=== PATIENT | female | born 1990 ===

== ENCOUNTER → 2023-06-16 08:41 | Outpatient (CLI) | payer OTHER, SELFPAY ==
[2023-06-16 09:18] LABS: Specimen Label Y
[2023-06-16 10:40] LABS: Add Manual Diff / Slide Review NO; Basophils Absolute Auto 0 /uL (0-100); Basophils Percent Auto 0.2 % (0-2); Eosinophils Absolute Auto 100 /uL (0-450); Eosinophils Percent Auto 1.2 % (2-4); Hematocrit 37.1 % (36-46); Hemoglobin 13.1 g/dL (12.0-16.0); Lymphocytes Absolute Auto 2000 /uL (1100-4500); Lymphocytes Percent Auto 34.6 % (25-40); Mean Corpuscular HGB Conc 35.4 % (30-36); Mean Corpuscular Hemoglobin 33.4 PG (26-34); Mean Corpuscular Volume 94.4 fL (80-100); Monocytes Absolute Auto 400 /uL (0-900); Monocytes Percent Auto 6.2 % (3-14); Neutrophils Absolute Auto 3300 /uL (1500-7000); Neutrophils Percent Auto 57.8 % (50-75); Platelet Count 255 X10^3/uL (150-400); Red Blood Cell Count 3.93 X10^6/uL (4.0-5.2); White Blood Cell Count 5.8 X10^3/uL (4.5-11.0)
[2023-06-16 10:55] LABS: Free T4, Direct Thyroxine 1.04 ng/dL (0.78-2.19)
[2023-06-16 11:09] LABS: Thyroid Stimulating Hormone 4.12 uIU/mL (0.47-4.68)
[2023-06-16 14:54] LABS: Urine N gonorrhoeae NOT DETECTED
[2023-06-16 14:56] LABS: Urine Chlamydia NOT DETECTED
[2023-06-16 16:48] LABS: Hepatitis B Surface Antigen NEGATIVE s/c (NEGATIVE); Rubella Antibody IgG 27.6 IU/mL (>15)
[2023-06-16 16:54] LABS: HIV 1 & 2 Ab/Ag 4th Gen Combo NEGATIVE (NEGATIVE)
[2023-06-16 17:10] LABS: Hep C Virus Ab w/Reflex Quant NEGATIVE s/c (NEGATIVE)
[2023-06-17 09:17] LABS: RPR Screen Non Reactive (Non Reactive)
[2023-06-17 11:20] LABS: Varicella IgG Antibody 1658 index (Immune >165)
== END ==
PROVIDERS: PCP Family Medicine; Referring Provider Specialist; Visit Provider Specialist
DX: O09.511 Supervision of elderly primigravida, first trimester (principal); Z34.81 Encounter for supervision of other normal pregnancy, first trimester; E03.9 Hypothyroidism, unspecified; Z3A.12 12 weeks gestation of pregnancy
CPT/HCPCS: 36415; 80055; 84439; 84443; 86787; 86803; 86850; 86870; 86886; 86900; 86901; 87086; 87389; 87491; 87591

== ENCOUNTER → 2023-09-17 13:08 | Outpatient (CLI) | payer OTHER, SELFPAY ==
[2023-09-17 14:52] LABS: Hematocrit 34.6 % (36-46); Hemoglobin 12.4 g/dL (12.0-16.0)
[2023-09-17 15:06] LABS: GTT (PREG) 1 Hour PP 50gm Dose 110 mg/dL (76-139)
[2023-09-17 15:42] LABS: Free T4, Direct Thyroxine 0.84 ng/dL (0.78-2.19)
[2023-09-17 15:56] LABS: Thyroid Stimulating Hormone 1.59 uIU/mL (0.47-4.68)
== END ==
PROVIDERS: PCP Family Medicine; Referring Provider Obstetrics & Gynecology; Visit Provider Obstetrics & Gynecology
DX: Z34.82 Encounter for supervision of other normal pregnancy, second trimester (principal); Z3A.26 26 weeks gestation of pregnancy; E03.9 Hypothyroidism, unspecified
CPT/HCPCS: 36415; 82950; 84439; 84443; 85014; 85018

== ENCOUNTER 2023-10-31 09:21 | Outpatient (CLI) | payer OTHER, SELFPAY | END 2023-10-31 10:00 | disposition home or self-care (01) | LOC: LABOR 09:40 → OB 11-03 12:04 | PROVIDERS: PCP Family Medicine; Referring Provider Obstetrics & Gynecology; Visit Provider Obstetrics & Gynecology | DX: O36.1930 Maternal care for other isoimmunization, third trimester, not applicable or unspecified (principal); Z3A.31 31 weeks gestation of pregnancy | CPT/HCPCS: 59025; G0378; G0379 ==

== ENCOUNTER 2023-11-14 08:42 | Outpatient (CLI) | payer OTHER, SELFPAY | END 2023-11-14 09:23 | disposition home or self-care (01) | LOC: LABOR 08:46 → OB 11-18 06:52 | PROVIDERS: PCP Family Medicine; Referring Provider Family Medicine; Visit Provider Family Medicine | DX: O36.1930 Maternal care for other isoimmunization, third trimester, not applicable or unspecified (principal); Z3A.33 33 weeks gestation of pregnancy | CPT/HCPCS: 59025; G0378; G0379 ==

== ENCOUNTER 2023-11-19 15:31 | Outpatient (CLI) | payer OTHER, SELFPAY | END 2023-11-19 16:02 | disposition home or self-care (01) | LOC: LABOR 15:33 → OB 11-20 12:26 | PROVIDERS: PCP Family Medicine; Referring Provider Obstetrics & Gynecology; Visit Provider Obstetrics & Gynecology | DX: O36.1930 Maternal care for other isoimmunization, third trimester, not applicable or unspecified (principal); Z3A.34 34 weeks gestation of pregnancy | CPT/HCPCS: 59025; G0378; G0379 ==

== ENCOUNTER 2023-11-25 08:14 | Outpatient (CLI) | payer OTHER, SELFPAY | END 2023-11-25 08:50 | disposition home or self-care (01) | LOC: OB 11-27 10:03 | PROVIDERS: PCP Family Medicine; Referring Provider Obstetrics & Gynecology; Visit Provider Obstetrics & Gynecology | DX: O36.1930 Maternal care for other isoimmunization, third trimester, not applicable or unspecified (principal); Z3A.35 35 weeks gestation of pregnancy | CPT/HCPCS: 59025; G0378; G0379 ==

== ENCOUNTER 2023-12-01 08:13 | Outpatient (CLI) | payer OTHER, SELFPAY ==
--- NOTE | 2023-12-01 08:45 | P.TNLD_ITS ---
Visit Information Visit Information Date of evaluation: 12/01/23 Primary OB Provider: Roula Pacheco On-call OB Provider: Paige Crawford Reason for Evaluation: Yes non-stress test Comments/Additional reasons for admission: Red blood cell antibody positive Vital Signs Vital Signs: Blood pressure 116/83 [facility] Medical History (Updated 12/01/23 @ 08:50 by Paige Crawford MD) Depression (~2013) Hyperthyroidism (~2017) Hyperlipidemia (~2013) Surgical History (Updated 07/17/23 @ 19:47 by Viji Vera) Anesthesia [place] teeth extracted Previous section (~05/2021) Family History (Updated 07/17/23 @ 19:48 by Viji Vera) Mother Melanoma Breast cancer Father Hypertension Hyperlipidemia Mental health problem Grandmother Cancer Grandfather Pancreatic cancer Grandfather Hyperlipidemia Stroke Social History marital status: number of children: 1 household members: spouse and children lives independently: Yes caregiver/support person: Yes housing: house pets and animals: Yes (2 cats, chickens) education level: other (DNP, geriatric provider for alf facilities) occupational status: employed current occupational exposures/hazards: Yes special ioana needs: No travel history: over 6 months ago seatbelt use: always helmet use: Yes water heater temp set < 120 deg: Yes working smoke detector in home: Yes fire extinguisher in home: Yes carbon monox detector in home: Yes firearms in home: No do you feel safe at home: Yes Smoking Status: Never smoker second hand exposure: No alcohol intake: former (rarely when not ) substance use type: does not use during the past year weight has: remained stable well-balanced diet: daily or most days daily servings fruits/ve-4 caffeine: Yes (aware of 200mg limit) Type(s) of exercise: walking Evaluation Evaluation Baseline heart rate: 140 Variability: Moderate (11-25) monitor accelerations: Present Monitor Decelerations: Absent Contraction Frequency (minutes): 0 Category of Tracing: Reactive Status: Category l Diagnosis, Plan/Disposition Final Diagnosis (1) Red blood cell antibody positive: Status: Acute (2) 36 weeks gestation of : Status: Acute Plan/Disposition Plan: Reactive nonstress test continue weekly exams. Patient is scheduled for repeat in 1 week OB Disposition: home
== END 2023-12-01 08:50 | disposition home or self-care (01) ==
LOC: LABOR 08:31 → OB 12-02 16:22
PROVIDERS: PCP Family Medicine; Referring Provider Specialist; Visit Provider Specialist
DX: O36.1930 Maternal care for other isoimmunization, third trimester, not applicable or unspecified (principal); Z3A.36 36 weeks gestation of pregnancy; Z34.83 Encounter for supervision of other normal pregnancy, third trimester
CPT/HCPCS: 59025; 87653; G0378; G0379

== ENCOUNTER → 2023-12-01 14:53 | Outpatient (CLI) | payer OTHER, SELFPAY ==
[2023-12-02 14:53] LABS: Strep Grp B PCR NEG for Grp B Strep
== END ==
PROVIDERS: PCP Family Medicine; Visit Provider Specialist
DX: Z34.83 Encounter for supervision of other normal pregnancy, third trimester (principal); Z3A.36 36 weeks gestation of pregnancy
CPT/HCPCS: 87653

== ENCOUNTER 2023-12-05 08:05 | Outpatient (CLI) | payer OTHER, SELFPAY ==
--- NOTE | 2023-12-05 08:33 | P.TNLD_ITS ---
Visit Information Visit Information Date of evaluation: 12/05/23 Primary OB Provider: Roula Pacheco On-call OB Provider: Paige Crawford Reason for Evaluation: Yes non-stress test non-stress test reason: other (Anti K antibodies) Vital Signs Vital Signs: Blood pressure 114/69, pulse 92, temperature 36? point [facility] Medical History (Updated 12/01/23 @ 08:50 by Paige Crawford MD) Depression (~2013) Hyperthyroidism (~2017) Hyperlipidemia (~2013) Surgical History (Updated 07/17/23 @ 19:47 by Viji Vera) Anesthesia [place] teeth extracted Previous section (~05/2021) Family History (Updated 07/17/23 @ 19:48 by Viji Vera) Mother Melanoma Breast cancer Father Hypertension Hyperlipidemia Mental health problem Grandmother Cancer Grandfather Pancreatic cancer Grandfather Hyperlipidemia Stroke Social History marital status: number of children: 1 household members: spouse and children lives independently: Yes caregiver/support person: Yes housing: house pets and animals: Yes (2 cats, chickens) education level: other (DNP, geriatric provider for fdc facilities) occupational status: employed current occupational exposures/hazards: Yes special ioana needs: No travel history: over 6 months ago seatbelt use: always helmet use: Yes water heater temp set < 120 deg: Yes working smoke detector in home: Yes fire extinguisher in home: Yes carbon monox detector in home: Yes firearms in home: No do you feel safe at home: Yes Smoking Status: Never smoker second hand exposure: No alcohol intake: former (rarely when not ) substance use type: does not use during the past year weight has: remained stable well-balanced diet: daily or most days daily servings fruits/ve-4 caffeine: Yes (aware of 200mg limit) Type(s) of exercise: walking Evaluation Evaluation Baseline heart rate: 140 Variability: Moderate (11-25) monitor accelerations: Present Monitor Decelerations: Absent Diagnosis, Plan/Disposition Final Diagnosis (1) 36 weeks gestation of : Status: Acute (2) Red blood cell antibody positive: Status: Acute Plan/Disposition Plan: Continue twice weekly nonstress tests OB Disposition: home
== END 2023-12-05 08:40 | disposition home or self-care (01) ==
LOC: OB 12-09 11:23
PROVIDERS: PCP Family Medicine; Referring Provider Specialist; Visit Provider Specialist
DX: O36.1930 Maternal care for other isoimmunization, third trimester, not applicable or unspecified (principal); Z3A.36 36 weeks gestation of pregnancy; Z01.818 Encounter for other preprocedural examination; R76.8 Other specified abnormal immunological findings in serum
CPT/HCPCS: 36415; 59025; 86850; 86870; 86886; 86900; 86901; G0378; G0379

== ENCOUNTER → 2023-12-05 08:39 | Outpatient (CLI) | payer OTHER, SELFPAY | LOC: LAB 08:41 | PROVIDERS: PCP Family Medicine; Referring Provider Specialist; Visit Provider Specialist | DX: Z01.818 Encounter for other preprocedural examination (principal); R76.8 Other specified abnormal immunological findings in serum; Z3A.36 36 weeks gestation of pregnancy | CPT/HCPCS: 36415; 86850; 86870; 86886; 86900; 86901 ==

== ENCOUNTER 2023-12-08 05:46 | Inpatient (IN) | payer OTHER, SELFPAY ==
[2023-12-08] VITALS (7 sets, daily range): BP systolic 107–122; BP diastolic 65–81; PULSE 83–98; RESP 11–19; TEMP 36.3; O2SAT 98–100
[2023-12-08 06:55] LABS: Add Manual Diff / Slide Review NO; Basophils Absolute Auto 0 /uL (0-100); Basophils Percent Auto 0.5 % (0-2); Eosinophils Absolute Auto 200 /uL (0-450); Eosinophils Percent Auto 1.8 % (2-4); Hematocrit 37.4 % (36-46); Lymphocytes Absolute Auto 2600 /uL (1100-4500); Lymphocytes Percent Auto 29.7 % (25-40); Mean Corpuscular HGB Conc 34.9 % (30-36); Mean Corpuscular Volume 94.7 fL (80-100); Monocytes Absolute Auto 700 /uL (0-900); Monocytes Percent Auto 7.8 % (3-14); Neutrophils Absolute Auto 5200 /uL (1500-7000); Neutrophils Percent Auto 60.2 % (50-75); Platelet Count 219 X10^3/uL (150-400); Red Blood Cell Count 3.95 X10^6/uL (4.0-5.2); Red Cell Distribution Width 12.6 % (11.6-14.8); White Blood Cell Count 8.6 X10^3/uL (4.5-11.0)
[2023-12-08] MEDS: CITRIC ACID/SODIUM CITRATE 15 ML SOLUTION 30 ML PO (07:25)
--- NOTE | 2023-12-08 07:28 | SUR.OPER ---
Supine on Padded OR bed, head on pillow, safety belt at thigh, arms secured on padded arm boards at <90 degrees abduction. Bump under right buttock. Legs uncrossed with pillow under knees, gel pad to heels, tape over blanket to lower legs.
--- NOTE | 2023-12-08 07:41 | PM.PREOP ---
Pre-operative Note Interval Note History & Physical reviewed/Exam performed by Physician: Yes Changes to H&P: No
--- NOTE | 2023-12-08 07:44 | P.HPOB_ITS ---
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 DateGA/WeeksLabor LgthBirth WtSexRouteOutcomeAnesthesiaPlace DelvBreastfeedPreg CompName 05/25/21 39.2 7 lb 12 oz MaleC-sectionlive - full term UW still going as of 06/04/23noneEnzo 07/25/22 8 spontaneous Evaluation Evaluation Baseline heart rate: 130 Variability: Moderate (11-25) monitor accelerations: Present Monitor Decelerations: Absent Contraction Frequency (minutes): 10 Uterine Contraction Intensity: Mild Category of Tracing: Reactive Status: Category l PFSH Medical History (Updated 12/01/23 @ 08:50 by Paige Crawford MD) Depression (~2013) Hyperthyroidism (~2017) Hyperlipidemia (~2013) Surgical History (Updated 07/17/23 @ 19:47 by Viji Vera) Anesthesia [place] teeth extracted Previous section (~05/2021) Family History (Updated 07/17/23 @ 19:48 by Viji Vera) Mother Melanoma Breast cancer Father Hypertension Hyperlipidemia Mental health problem Grandmother Cancer Grandfather Pancreatic cancer Grandfather Hyperlipidemia Stroke Social History marital status: number of children: 1 household members: spouse and children lives independently: Yes caregiver/support person: Yes housing: house pets and animals: Yes (2 cats, chickens) education level: other (DNP, 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: employed current occupational exposures/hazards: Yes special ioana needs: No travel history: over 6 months ago seatbelt use: always helmet use: Yes water heater temp set < 120 deg: Yes working smoke detector in home: Yes fire extinguisher in home: Yes carbon monox detector in home: Yes firearms in home: No do you feel safe at home: Yes Smoking Status: Never smoker second hand exposure: No alcohol intake: former (rarely when not ) substance use type: does not use during the past year weight has: remained stable well-balanced diet: daily or most days daily servings fruits/ve-4 caffeine: Yes (aware of 200mg limit) Type(s) of exercise: walking Meds Home Medications and Allergies Home Medications Medication Instructions Recorded Confirmed Type vit no.95-ferrous 1 tab PO DAILY 06/04/23 12/08/23 History fumarate 28 mg-folic acid 800 mcg tablet ( Multivitamins) emtricitabine 100 mg-tenofovir 1 tab PO DAILY #90 tabs 11/13/23 12/08/23 Rx disoproxil fumarate 150 mg tablet (Truvada) levothyroxine 125 mcg tablet 125 mcg PO DAILY #30 tabs 11/13/23 12/08/23 Rx sertraline 25 mg tablet 25 mg PO DAILY #30 tabs 11/13/23 12/08/23 Rx Allergies Allergy/AdvReac Type Severity Reaction Status Date / Time Penicillins Allergy Mild Rash Verified 12/01/23 15:42 Review of Systems Review of Systems Narrative: No headaches, scotomata, epigastric pain. Good movement. No leakage of fluid. No vaginal bleeding. OB Exam Vital signs Blood Pressure: 122/81 Pulse Rate: 83 Narrative Exam Narrative: HEENT exam within normal limits. Lungs are clear to auscultation percussion. Heart is regular rate and rhythm no S3-S4 murmurs. Abdomen is soft, nontender and gravid. Fetus is vertex. Extremities without edema and nontender Objective Labs 12/08/23 06:40 Labs: Laboratory Results - last 24 hr 12/08/23 06:40 WBC 8.6 RBC 3.95 L Hgb 13.0 Hct 37.4 MCV 94.7 MCH 33.0 MCHC 34.9 RDW 12.6 Plt Count 219 Neut % (Auto) 60.2 Lymph % (Auto) 29.7 [place] % (Auto) 7.8 Eos % (Auto) 1.8 L Baso % (Auto) 0.5 Neut # (Auto) 5200 Lymph # (Auto) 2600 [place] # (Auto) 700 Eos # (Auto) 200 Baso # (Auto) 0 Assessment and Plan Assessment and Plan Assessment and Plan narrative: 37 week 1 day gestation with prior section, anti K and anti JK a antibodies with requests for contraception in the form of a ParaGard placed at time procedure, scheduled for repeat low-transverse section and placement of ParaGard IUD.
[2023-12-08] MEDS: CEFAZOLIN 2 GM/100 ML PREMIX 100 ML IV (08:40)
[2023-12-08] MEDS: LACTATED RINGERS 1,000 ML 999 ML IV (09:24)
--- NOTE | 2023-12-08 09:48 | PM.OBCS.1 ---
Operative Date/Time/Diagnoses Date of procedure: 12/08/23 Time of procedure: 09:48 Pre-op diagnosis: 37 week gestation with prior section, anti K and anti JK a antibodies, desire for contraception Post-op diagnosis: same Procedure & Clinicians Procedure: Repeat low-transverse section with placement of ParaGard IUD Same procedure as scheduled: Yes Indications: 37 week gestation, Prior section , anti K and anti JK a antibodies. Wish for contraception Surgeon: Paige Crawford Senior Examiner: Augustina Muñoz Anesthesia Type: Spinal Operative Notes Findings: Normal tubes, ovaries, uterus. Viable male . Closure Type: primary Specimen(s): cord blood Intraoperative meds administered: Duramorph, Methergine and Pitocin Applied: Catheter (Lynn) Estimated Blood Loss (mL): 600 Blood products transfused: none Procedure in detail: The patient was brought to the operating room where she underwent a spinal for anesthesia. She was placed in a supine position with a left lateral tilt. A Lynn catheter was placed. Pulsatile stockings were placed and functional throughout the case. 2 g of Ancef were given IV prior to the incision. Warming was in place. The patient was prepped and draped in usual sterile fashion. A low transverse incision was made with a scalpel and the incision was carried down to the fascial layer which was incised transversely with scissors. The community program assistant did her side of the incision. The midline attachments are superiorly and inferiorly. Some bleeding was controlled Bovie. The rectus muscles were in the midline and the peritoneal incision was made with no damage to internal structures. The peritoneum was incised and superiorly and inferiorly. The incision was stretched with the surgeon and community program assistant placing traction. Bladder blade was placed and a bladder flap was developed and the bladder held away from the lower uterine segment. An incision was made in the uterus with the scalpel and the incision was extended with stretching. The head was elevated out of the abdomen and with fundal pressure by the community program assistant the baby was delivered. The was bulb suctioned for clear fluid and handed off to the warmer. Cord blood was collected. The placenta delivered spontaneously with traction. The uterus was cleaned with clean laps. The ParaGard IUD was placed in the uterus with the IUD strings directed down to the cervix. The strings were shorter than usual from the kit so unclear if they will come out of the cervix. The uterine incision was closed in 2 layers of 0 chromic suture the first a running locking layer the second an imbricating layer. The community program assistant was helping to expose the incision. The bladder peritoneum was repaired with 2-0 Vicryl suture. The gutters were cleaned of any remaining fluids and ovaries and tubes were observed to be normal. Adequate hemostasis was noted. The perineum was closed with 2-0 Vicryl suture. The fascia layer was closed with 0 Vicryl suture with 2 stitches. The community program assistant repairing half the incision with helping to retract and expose the incision for the other half. The incision was irrigated and adequate hemostasis noted. The incision was closed with interrupted 3-0 Vicryl sutures and then a subcuticular stitch of 4-0 Vicryl suture. Steri-Strips were placed. The uterus was massaged to remove any clots. The patient went to recovery room in good condition. Counts of instruments and sponges were correct. Dr. Muñoz was present throughout the case to assist with retraction, fundal pressure to deliver the , and suturing half the fascia. Complications: none Baby 1: Gender: Male Presentation: vertex Position: Right Occiput Transverse Placental Delivery Description: Expressed Cord Vessel Description: 3 Vessels Post-operative Condition: stable Disposition: other ( Center) Aftercare: routine postop
[2023-12-08] MEDS: KETOROLAC 30 MG/ML VIAL 15 MG IV (09:54)
--- NOTE | 2023-12-08 10:09 | SUR.PHASEI ---
Zofia, center RN, present during recovery. Report given. Patient transferred to the [facility] and left in care of RN.
[2023-12-08] MEDS: ONDANSETRON 4 MG/2 ML INJ IV (11:13)
[2023-12-08] MEDS: METOCLOPRAMIDE 10 MG/2 ML INJ 5 MG IV (12:19)
[2023-12-08] MEDS: ACETAMINOPHEN 325 MG TABLET 650 MG PO ×2 (13:25→18:32)
[2023-12-08] MEDS: KETOROLAC 30 MG/ML VIAL IV ×2 (16:00→21:58)
[2023-12-08] MEDS: MAGNESIUM HYDROXIDE 30 ML UDC PO (21:54)
[2023-12-08] MEDS: SERTRALINE 50 MG TABLET 25 MG PO (22:24)
[2023-12-09] MEDS: ACETAMINOPHEN 325 MG TABLET 650 MG PO ×3 (03:31→18:03)
[2023-12-09 05:14] LABS: Add Manual Diff / Slide Review NO; Basophils Absolute Auto 0 /uL (0-100); Basophils Percent Auto 0.4 % (0-2); Eosinophils Absolute Auto 200 /uL (0-450); Eosinophils Percent Auto 1.5 % (2-4); Hematocrit 32.7 % (36-46); Hemoglobin 11.4 g/dL (12.0-16.0); Lymphocytes Absolute Auto 2400 /uL (1100-4500); Lymphocytes Percent Auto 23.4 % (25-40); Mean Corpuscular HGB Conc 34.9 % (30-36); Mean Corpuscular Volume 94.6 fL (80-100); Monocytes Absolute Auto 900 /uL (0-900); Monocytes Percent Auto 8.5 % (3-14); Neutrophils Absolute Auto 6900 /uL (1500-7000); Neutrophils Percent Auto 66.2 % (50-75); Platelet Count 189 X10^3/uL (150-400); Red Blood Cell Count 3.46 X10^6/uL (4.0-5.2); Red Cell Distribution Width 12.5 % (11.6-14.8); White Blood Cell Count 10.4 X10^3/uL (4.5-11.0)
[2023-12-09] MEDS: KETOROLAC 30 MG/ML VIAL IV (05:53)
[2023-12-09] MEDS: LEVOTHYROXINE 125 MCG TABLET PO (06:13)
[2023-12-09] MEDS: DOCUSATE 100 MG CAPSULE PO (09:09)
--- NOTE | 2023-12-09 13:01 | P.PNOB_ITS ---
Subjective - OB Subjective Patient comments: pain well controlled [place] baby status: nursing well (Baby is finally oxygen supplementation and last 2 blood sugars in the normal range) feeding status: exclusively breast feeding Narrative: Patient was able to shower without difficulty. She is urinating well post foly catheter removal. She has had a bowel movement. Date Patient Seen: 12/09/23 Time Patient Seen: 13:02 Interval history: Postoperative day 1 repeat section Exam Vital Signs (past 8 hours): Blood pressure 104/68, pulse 70, temperature 98.3? Oxygen Delivery Method Room Air Narrative Exam Narrative: Abdomen is soft, nontender. Uterus is firm, at U, nontender. Dressing is clean, dry, intact. Mild lochia. Extremities with trace edema and nontender. Objective Labs 12/09/23 05:06 Labs: Laboratory Results - last 24 hr 12/09/23 05:06 WBC 10.4 RBC 3.46 L Hgb 11.4 L Hct 32.7 L MCV 94.6 MCH 33.0 MCHC 34.9 RDW 12.5 Plt Count 189 Neut % (Auto) 66.2 Lymph % (Auto) 23.4 L [place] % (Auto) 8.5 Eos % (Auto) 1.5 L Baso % (Auto) 0.4 Neut # (Auto) 6900 Lymph # (Auto) 2400 [place] # (Auto) 900 Eos # (Auto) 200 Baso # (Auto) 0 Assessment & Plan Plan day: 1 plan OB: routine postop care Time Spent With Patient Time: Total time spent is greater than 50% in coordination of care (as documented) at patient's floor/unit and/or counseling patient: Time with patient: less than 15 minutes
[2023-12-09] MEDS: OXYCODONE IR 5 MG TABLET PO ×2 (15:41→21:48)
[2023-12-09] MEDS: IBUPROFEN 600 MG TABLET PO ×2 (15:41→21:47)
[2023-12-09] MEDS: PRENATAL VIT,CALC/IRON/FOLIC 1 TABLET 1 TAB PO (18:03)
[2023-12-09] MEDS: SERTRALINE 50 MG TABLET 25 MG PO (21:48)
[2023-12-09] MEDS: LANOLIN OINT 7 GM 1 APPLIC TOP (21:49)
[2023-12-09] MEDS: MAGNESIUM HYDROXIDE 30 ML UDC PO (21:58)
[2023-12-10] MEDS: ACETAMINOPHEN 325 MG TABLET 650 MG PO ×2 (01:19→09:07)
[2023-12-10] MEDS: IBUPROFEN 600 MG TABLET PO ×2 (04:28→10:38)
[2023-12-10] MEDS: LEVOTHYROXINE 125 MCG TABLET PO (06:03)
[2023-12-10] MEDS: DOCUSATE 100 MG CAPSULE PO (09:07)
[2023-12-10] MEDS: PRENATAL VIT,CALC/IRON/FOLIC 1 TABLET 1 TAB PO (09:07)
--- NOTE | 2023-12-10 10:41 | P.DS_ITS ---
Discharge Providers Provider Date of admission: 12/08/23 05:46 Discharge Date: 12/10/23 Primary care physician: Augustina Muñoz MD Consults: 12/08/23 10:31 Consult to Bed And Breakfast Cook Routine Comment: Discharge provider: Paige Crawford MD Summary Hospital Course Date Patient Seen: 12/10/23 Time Patient Seen: 10:41 Diagnoses: 37 week gestation with prior section and anti K and anti JK a antibodies Hospital Course: Patient underwent a repeat section on 12/08/2023. She did extremely well . She is breast-feeding without difficulty. She is urinating and ambulating well. She has had a bowel movement. The baby initially had oxygen therapy and low blood sugars but is doing very well at this point. Peripartum Data Delivery Method: Section (Repeat) complications: none [place] 1: Gender: Male Disposition of : home Status at Discharge Cognitive/behavioral status at discharge: oriented Functional status at discharge: independent ambulation Overall status at discharge: patient is progressing back to baseline Time Spent with Patient Time attestation: Total time spent providing and/or coordinating discharge services: Time spent: Less than 30 minutes Objective Labs 12/09/23 05:06 Exam Vital Signs (past 8 hours): Blood pressure 122/82, pulse 91, temperature 98.4? Oxygen Delivery Method Room Air Narrative Exam Narrative: Abdomen is soft, nontender. Uterus is firm, at U, nontender. Dressing is clean, dry, intact. Mild lochia. Extremities with edema of both feet nontender. No change in left leg varicose veins. Discharge Plan Discharge Plan Patient Disposition: Home Discharge orders & Medications Prescriptions: New ibuprofen 600 mg Tablet 600 mg PO Q6H Qty: 20 0RF oxycodone 5 mg Tablet 5 mg PO Q4H PRN (Reason: Pain, Moderate (4-6)) Qty: 20 0RF Continued emtricitabine-tenofovir (TDF) [Truvada] 100-150 mg tablet 1 tab PO DAILY Qty: 90 3RF levothyroxine 125 mcg tablet 125 mcg PO DAILY Qty: 30 3RF sertraline 25 mg tablet 25 mg PO DAILY Qty: 30 4RF PNV cmb#95-ferrous fumarate-FA [ Multivitamins] 28 mg iron- 800 mcg tablet 1 tab PO DAILY Follow up/Referrals: Paige Crawford MD [Physician] - (Your one week dressing removal/incision check with Dr. Crawford is scheduled for December 16 @2pm. Your six week follow up appointment with Dr. Pacheco is scheduled for January 19 @1:30pm. Please check in 15minutes prior to all appointments.) Augustina Muñoz MD [Primary Care Provider] - Diet/Activity/Treatments Diet: Regular Activity: Nothing in vagina or lifting over 20 lb for 6 weeks Skin/Wound/Dressing Care Report to your healthcare provider any signs of infection, such as:: chills, fever and increased pain Dressing: Leave dressing on until 1 week appointment Visit Report/Discharge Packet Stand Alone Forms: Discharge: Care, Patient Portal/API, Stroke Signs & Symptoms Discharge Data Primary Care Provider: Augustina Muñoz
[2023-12-10 12:02] VITALS: BP 122/82; PULSE 91; RESP 19; TEMP 36.9
== END 2023-12-10 13:30 | disposition home or self-care (01) | DRG 788 ==
PROVIDERS: Admitting Provider Specialist; PCP Family Medicine; Referring Provider Specialist; Visit Provider Specialist
PROC: 10D00Z1 Extraction of Products of Conception, Low, Open Approach (ICD-10-PCS; CPT 59514; principal; 2023-12-08 07:45)
PROC: 10D00Z1 Extraction of Products of Conception, Low, Open Approach (ICD-10-PCS; 2023-12-08 07:45)
DX: O34.211 Maternal care for low transverse scar from previous cesarean delivery (principal); Z3A.37 37 weeks gestation of pregnancy; Z37.0 Single live birth
CPT/HCPCS: 36415; 58300; 59050; 59510; 59514; 85025; C1776; J0690; J1885; J2274; J2405; J2765; J3010; J7300

== ENCOUNTER → 2024-01-19 14:03 | Outpatient (CLI) | payer OTHER, SELFPAY ==
[2024-01-19 15:27] LABS: Free T4, Direct Thyroxine 1.52 ng/dL (0.78-2.19)
[2024-01-19 15:43] LABS: Thyroid Stimulating Hormone < 0.015 uIU/mL (0.47-4.68)
== END ==
PROVIDERS: PCP Family Medicine; Referring Provider Obstetrics & Gynecology; Visit Provider Obstetrics & Gynecology
DX: E03.9 Hypothyroidism, unspecified (principal)
CPT/HCPCS: 36415; 84439; 84443

== ENCOUNTER → 2025-06-29 14:08 | Outpatient (CLI) | payer OTHER, SELFPAY ==
[2025-06-29 15:56] LABS: TSH w/ Reflex to FT4 9.81 uIU/mL (0.47-4.68)
[2025-06-29 16:47] LABS: Free T4, Direct Thyroxine 0.74 ng/dL (0.78-2.19)
== END ==
PROVIDERS: PCP Family Medicine; Referring Provider Family Medicine; Visit Provider Family Medicine
DX: E03.9 Hypothyroidism, unspecified (principal)
CPT/HCPCS: 36415; 84439; 84443

== ENCOUNTER → 2025-09-28 08:56 | Outpatient (CLI) | payer OTHER, SELFPAY ==
[2025-09-28 10:16] LABS: Cholesterol 263 mg/dL (140-199); HDL Cholesterol 76 mg/dL (40-60); Triglycerides 48 mg/dL (35-150)
[2025-09-28 10:39] LABS: TSH w/ Reflex to FT4 5.39 uIU/mL (0.47-4.68)
[2025-09-28 11:05] LABS: Free T4, Direct Thyroxine 0.96 ng/dL (0.78-2.19)
== END ==
PROVIDERS: PCP Family Medicine; Referring Provider Family Medicine; Visit Provider Family Medicine
DX: Z13.220 Encounter for screening for lipoid disorders (principal); E03.9 Hypothyroidism, unspecified
CPT/HCPCS: 36415; 80061; 84439; 84443